=== PATIENT | female | born 1990 | race American Indian/Alaskan Native ===

== ENCOUNTER 2017-03-17 17:47 | Emergency (ER) | payer OTHER ==
[2017-03-17 21:46] LABS: Bacteria,Urine 1+ /HPF (Negative); Bilirubin,Urine NEG (Negative); Blood,Urine SM (Negative); Ketones,Urine TR mg/dL (Negative); Leukocyte Esterase,Urine LG (Negative); Mucus,Urine 3+ /HPF; Nitrite,Urine NEG (Negative)
--- NOTE | 2017-03-17 22:03 | Emergency Department Report ---
HPI - General Chief Complaint: Urogenital-Female Time Seen by Provider: 03/17/17 19:26 - HPI HPI: 26-year-old female presents today complaining of vaginal discharge times one week that is whitish yellow in color. Also admits to burning upon urination starting today. Denies fever, chills, nausea, vomiting, chest pain, shortness of breath, abdominal pain, increased urinary frequency or urgency, blood in urine. Denies history of similar symptoms. Positive for history of Trichomonas and was treated. Patient is not currently sexually active but she would like to be tested and treated for gonorrhea and chlamydia. ED Past Medical Hx - Past Medical History Previous Medical History?: No - Surgical History Past Surgical History?: No - Social History Smoking Status: Current Every Day Smoker Substance Use Type: Alcohol, Marijuana - Medications Home Medications: Home Medications Medication Instructions Recorded Confirmed Last Taken Type Sulfamethoxazole/Trimethoprim 1 each PO BID #6 tablet 03/17/17 Unknown Rx [Bactrim DS TAB] metroNIDAZOLE [Flagyl] 500 mg PO Q12HR #14 tab 03/17/17 Unknown Rx ED Review of Systems ROS: Stated complaint: VAGINAL DISCHARGE Other details as noted in HPI Constitutional: denies: chills, fever, malaise Eyes: denies: eye pain ENT: denies: ear pain, throat pain, congestion Respiratory: denies: cough, shortness of breath, wheezing Cardiovascular: denies: chest pain, palpitations Endocrine: no symptoms reported Gastrointestinal: denies: abdominal pain, nausea, vomiting Genitourinary: dysuria, discharge. denies: urgency, frequency, hematuria Musculoskeletal: denies: back pain Neurological: denies: headache, weakness Physical Exam - Physical Exam Vital Signs: Vital Signs 03/17/17 17:52 Temperature 98.1 F Pulse Rate 107 H Respiratory 20 Rate Blood Pressure 152/93 O2 Sat by Pulse 100 Oximetry Physical Exam: GENERAL: The patient is well-developed and well-nourished. Patient is in NAD. HEAD: Normocephalic. Atraumatic. CHEST/LUNGS: Clear to auscultation throughout. HEART/CARDIOVASCULAR: Regular rate and rhythm. No murmurs, rubs or gallops. ABDOMEN: Abdomen is soft, nontender. Bowel sounds normoactive. No guarding or rebound tenderness. Negative for CVA tenderness bilaterally. PELVIC: Normal external genitalia. Off white discharge noted in vaginal canal. No bleeding noted. EXTREMITIES: Peripheral pulses intact. Capillary refill less than 2 seconds. NEURO: Alert and oriented x 3. Normal gait. ED Course Vital Signs 03/17/17 17:52 Temperature 98.1 F Pulse Rate 107 H Respiratory 20 Rate Blood Pressure 152/93 O2 Sat by Pulse 100 Oximetry ED Medical Decision Making - Lab Data Vital Signs 03/17/17 03/17/17 17:52 22:49 Temperature 98.1 F 98 F Pulse Rate 107 H 73 Respiratory 20 18 Rate Blood Pressure 152/93 Blood Pressure 121/74 [Left] O2 Sat by Pulse 100 100 Oximetry - Medical Decision Making 26-year-old female presents today with vaginal discharge times one week and dysuria 1 day. Her urinalysis reveals small blood, large leukocyte esterase and elevated urine WBC. Her wet prep is positive for clue cells. Patient is in no acute distress at this time. The patient has been treated with ceftriaxone and azithromycin today. She will be discharged home and is encouraged to follow up with a primary care provider. She will be sent home on Bactrim and Flagyl and is encouraged to return to the emergency room for any worsening symptoms. Critical care attestation.: If time is entered above; I have spent that time in minutes in the direct care of this critically ill patient, excluding procedure time. ED Disposition Clinical Impression: Bacterial vaginosis UTI (urinary tract infection) Qualifiers: Urinary tract infection type: acute cystitis Hematuria presence: with hematuria Qualified Code(s): N30.01 - Acute cystitis with hematuria Disposition: DISCHARGED TO HOME OR SELFCARE Is pt being admited?: No Does the pt Need Aspirin: No Condition: Stable Instructions: Bacterial Vaginosis (ED) Additional Instructions: Follow-up with primary care provider. Return to the emergency department if symptoms worsen. Prescriptions: metroNIDAZOLE [Flagyl] 500 mg PO Q12HR #14 tab Sulfamethoxazole/Trimethoprim [Bactrim DS TAB] 1 each PO BID #6 tablet Referrals: PRIMARY CARE [Primary Care Provider] - 3-5 Days [facility] [Outside] - 3-5 Days Forms: STI Treatment and Prevention, Work/School Release Form(ED) Time of Disposition: 22:28
[2017-03-17] MEDS ORDERED: XYLOCAINE 1% MPF 5 mL INFILTRATI ONE (22:15)
[2017-03-17] MEDS ORDERED: ROCEPHIN IM ONE (22:15)
[2017-03-17] MEDS ORDERED: ZITHROMAX PO ONE (22:15)
[2017-03-17 22:50] VITALS: BP 121/74
== END 2017-03-18 00:10 | disposition home or self-care (01) ==
LOC: ED 17:47
DX: N76.0 Acute vaginitis (principal); N30.01 Acute cystitis with hematuria; F17.200 Nicotine dependence, unspecified, uncomplicated; F12.10 Cannabis abuse, uncomplicated
CPT/HCPCS: 81001; 81025; 87210; 87591; 96372; 99284; J0696